=== PATIENT | female | born 1985 ===

== ENCOUNTER → 2017-12-03 | Outpatient (CLI) | payer OTHER, MEDICAID | LOC: BMCIMAGING 11:07 | PROVIDERS: ATTEND Family Medicine | DX: M25.572 Pain in left ankle and joints of left foot (principal); M25.472 Effusion, left ankle ==

== ENCOUNTER → 2017-12-31 | Outpatient (CLI) | payer OTHER | LOC: BMCIMAGING 13:41 | PROVIDERS: ATTEND Podiatrist Foot & Ankle Surgery | DX: S93.402A Sprain of unspecified ligament of left ankle, initial encounter (principal) ==